=== PATIENT | male | born 1980 ===

== ENCOUNTER 2017-03-04 13:37 | Emergency (ER) | payer OTHER ==
--- NOTE | 2017-03-04 15:14 | RAD ---
INDICATION: RIGHT lower extremity redness medial thigh. COMPARISON: February 19, 2017. TECHNIQUE: Limited venous ultrasound RIGHT lower extremity for reassessment of greater saphenous vein thrombus. REPORT: There is occlusive thrombosis of the RIGHT great saphenous vein at the calf as on the prior exam with propagation cephalad to the mid thigh corresponding with the region of skin redness. The great saphenous vein at the saphenous femoral junction demonstrates normal compressibility without evidence for thrombosis. Compressibility of the RIGHT common femoral, profunda femoral, proximal, mid, and distal segments of the femoral, and popliteal vein demonstrated. Compressibility of the RIGHT paired posterior tibial and peroneal veins demonstrated. Patency of the LEFT common femoral vein documented. IMPRESSION: 1. Proximal extension of the RIGHT great saphenous vein thrombus to the mid thigh corresponding with the region of skin redness. 2. The deep veins of the RIGHT lower extremity remain compressible without evidence for DVT.
[2017-03-04 16:45] LABS: Hematocrit 48 % (42-52); Hemoglobin 15.8 g/dl (14.0-18.0); Mean Corpuscular HGB Conc 33 g/dl (31-36); Mean Corpuscular Hemoglobin 30 pg (27-31); Mean Corpuscular Volume 91 fL (80-94); Mean Platelet Volume 10 um3 (7.4-10.4); Red Blood Count 5.22 10^6/ul (4.0-5.4); Red Cell Distribution Width 13 % (10.5-15); White Blood Count 8.1 10^3/ul (3.5-10.8)
[2017-03-04 17:03] LABS: Albumin 4.5 g/dL (3.2-5.2); BUN/Creatinine Ratio 11.8 (8-20); Calcium 9.5 mg/dL (8.6-10.3); EGFR African American 106.9 (>60); EGFR Non-African American 83.1 (>60); Globulin 3.2 g/dL (2-4); Potassium 3.7 mmol/L (3.5-5.0); Total Bilirubin 0.5 mg/dL (0.2-1.0); Total Protein 7.7 g/dL (6.4-8.9)
[2017-03-04] MEDS ORDERED: Iohexol 350* (CONTRAST) 500 ML MDV IV ONE (17:22)
--- NOTE | 2017-03-04 17:57 | RAD ---
INDICATION: Chest pain. RIGHT lower extremity superficial venous thrombosis. COMPARISON: No relevant prior exams available on the [facility] [place] [facility] PACS. TECHNIQUE: Multidetector CT images were obtained from the lung apices to the upper abdomen with 74 mL Omnipaque 350 IV contrast. Pulmonary angiogram protocol. Multiplanar reformation including with maximum intensity projection. REPORT: Clear lungs and pleural spaces. Negative for pneumothorax. Residual normal-appearing thymic tissue in the anterior mediastinum. Negative for thoracic lymphadenopathy. Upper normal heart size. Negative for pericardial effusion. Unremarkable thoracic aorta. No filling defects are identified from the main to the subsegmental pulmonary arteries to indicate presence of a pulmonary embolism. Unremarkable Limited images through the upper abdomen. Negative for thoracic fracture or suspicious focal osseous lesion. No CT abnormality of the thoracic spine. IMPRESSION: 1. No evidence for pulmonary embolism. 2. No acute thoracic pathologic process evident.
[2017-03-04] MEDS ORDERED: Rivaroxaban TAB(*) 15 MG PO ONE (18:24)
[2017-03-04 19:28] VITALS: BP 136/87
--- NOTE | 2017-03-07 18:25 | ED ---
Luci Carlson Claudia, scribed for Balta Martinez MD on 03/04/17 at 1638 . Lower Extremity - HPI Summary HPI Summary: 37 year old male presents to the ED with right leg pain. About 3 weeks ago the pt was Dx with an SVT in his right lower leg and has been monitored by an Orthopedist and Kristi and is taking 500mg of ibuprofen daily. However, he noted overnight the blood clot moved up to his thigh and is now causing swelling , redness and burning pain 6/10. Pt has been using a heating pas which assisted in some alleviation of the pain but no other alleviation or aggravating Sx. Pt denies any fever, chills or associated Sx. Pt thinks the original SVT is from him playing soccer and his socks. - History of Current Complaint Chief Complaint: EDExtremityLower Stated Complaint: RIGHT LEG BLOOD CLOTT Time Seen by Provider: 03/04/17 14:23 Hx Obtained From: Patient Pain Intensity: 6 Pain Scale Used: 0-10 Numeric Timing: Constant, Lasting Days Location: Is Discrete @ - right leg Associated Signs And Symptoms: Positive: Swelling, Redness. Negative: Fever Aggravating Factor(s): Nothing Alleviating Factor(s): Nothing Able to Bear Weight: Yes PMH/Surg Hx/FS Hx/Imm Hx Previously Healthy: Yes Endocrine/Hematology History: Denies: Hx Diabetes Cardiovascular History: Denies: Hx Hypertension, Hx Pacemaker/ICD Sensory History: Denies: Hx Hearing Aid Psychiatric History: Denies: Hx Panic Disorder Infectious Disease History: No Infectious Disease History: Denies: Traveled Outside the [place] in Last 30 Days - Family History Known Family History: Negative: Diabetes - Social History Occupation: Student Lives: With Family Alcohol Use: None Hx Substance Use: No Hx Tobacco Use: No Smoking Status (MU): Never Smoked Tobacco Review of Systems Constitutional: Negative Negative: Fever, Chills Eyes: Negative Negative: Erythema ENT: Negative Negative: Sore Throat Positive: Palpitations Positive: Shortness Of Breath Gastrointestinal: Negative Negative: Abdominal Pain, Vomiting, Nausea Genitourinary: Negative Negative: dysuria, hematuria Musculoskeletal: Other - right leg swelling, redness and pain Negative: Myalgia Skin: Negative Negative: Rash Neurological: Negative Psychological: Normal All Other Systems Reviewed And Are Negative: Yes Physical Exam - Summary Physical Exam Summary: Constitutional: Well-developed, Well-nourished, Alert. (-) Distressed Skin: Warm, Dry HENT: Normocephalic; Atraumatic Eyes: Conjunctiva normal Neck: Musculoskeletal ROM normal neck. (-) JVD, (-) Stridor, (-) Tracheal deviation Cardio: Rhythm regular, rate normal, Heart sounds normal; Intact distal pulses; The pedal pulses are 2+ and symmetric. Radial pulses are 2+ and symmetric. (-) Murmur Pulmonary/Chest wall: Effort normal. (-) Respiratory distress, (-) Wheezes, (-) Rales Abd: Soft, (-) Tenderness, (-) Distension, (-) Guarding, (-) Rebound Musculoskeletal: (-) Edema SOME TENDERNESS OVER THE MEDIAL ASPECT OF THE RIGHT CALF AND RIGHT THIGH WITH MILD REDNESS Lymph: (-) Cervical adenopathy Neuro: Alert, Oriented x3 Psych: Mood and affect Normal Triage Information Reviewed: Yes Vital Signs On Initial Exam: Initial Vitals Temp Pulse Resp BP Pulse Ox 98.4 F 73 20 153/97 99 03/04/17 13:40 03/04/17 13:40 03/04/17 13:40 03/04/17 13:40 03/04/17 13:40 Vital Signs Reviewed: Yes Diagnostics - Vital Signs Vital Signs Temp Pulse Resp BP Pulse Ox 03/04/17 13:44 97.4 F 70 20 153/97 100 03/04/17 13:40 98.4 F 73 20 153/97 99 - Laboratory Result Diagrams: 03/04/17 16:35 03/04/17 16:35 Lab Statement: Any lab studies that have been ordered have been reviewed, and results considered in the medical decision making process. - CT CTA CHEST/THORAX CT Interpretation: No Acute Changes - 1. No evidence for pulmonary embolism. 2. No acute thoracic pathologic process evident. CT Interpretation Completed By: Radiologist - Additional Comments Diagnostic Additional Comments: VENOUS DOPPLER STUDY: 1. Proximal extension of the RIGHT great saphenous vein thrombus to the mid thigh corresponding with the region of skin redness. 2. The deep veins of the RIGHT lower extremity remain compressible without evidence for DVT. Lower Extremity Course/Dx - Course Assessment/Plan: After venous doppler study and CTA Chest/Thorax and the extension of the Superficial Vein Thrombosis the pt will be d/c home with Xarelto and follow-up this week with Kristi. - Diagnoses Provider Diagnoses: Superficial vein thrombosis Discharge - Discharge Plan Condition: Stable Disposition: HOME Referrals: Ibrahima Vargas MD [Primary Care Provider] - [facility] [Outside] - 2 Days (PLEASE FOLLOW UP THIS WEEK.) The documentation as recorded by the Luci christina Claudia accurately reflects the service I personally performed and the decisions made by , Balta Martinez MD.
== END 2017-03-04 19:27 | disposition home or self-care (01) ==
LOC: ED 13:37
DX: I82.811 Embolism and thrombosis of superficial veins of right lower extremity (principal); R00.2 Palpitations; R06.02 Shortness of breath
CPT/HCPCS: 36415; 71275; 80053; 83605; 85025; 85610; 85730; 99282; Q9967

== ENCOUNTER 2017-07-06 12:10 | Emergency (ER) | payer OTHER ==
[2017-07-06 13:53] LABS: Hematocrit 41 % (42-52); Hemoglobin 14.1 g/dl (14.0-18.0); Mean Corpuscular HGB Conc 34 g/dl (31-36); Mean Corpuscular Hemoglobin 32 pg (27-31); Mean Corpuscular Volume 92 fL (80-94); Mean Platelet Volume 10 um3 (7.4-10.4); Red Blood Count 4.47 10^6/ul (4.0-5.4); Red Cell Distribution Width 13 % (10.5-15); White Blood Count 4.9 10^3/ul (3.5-10.8)
[2017-07-06 14:13] LABS: Albumin 4.3 g/dL (3.2-5.2); BUN/Creatinine Ratio 13.2 (8-20); C Reactive Protein 10.06 mg/L (< 5.00); Calcium 9.5 mg/dL (8.6-10.3); EGFR African American 102.2 (>60); EGFR Non-African American 79.5 (>60); Globulin 2.9 g/dL (2-4); Total Bilirubin 0.4 mg/dL (0.2-1.0); Total Protein 7.2 g/dL (6.4-8.9)
--- NOTE | 2017-07-06 14:36 | RAD ---
Indication: Left flank pain. Real-time sonography of the kidneys was performed. The left kidney measures 12.4 x 6.6 x 5.5 cm. No hydronephrosis is noted. Echogenic foci in the midportion of the left kidney measures 5 mm. There may be an additional calculi noted. IMPRESSION: There are 2 5 mm calculi in the midportion of left kidney without definite hydronephrosis.
[2017-07-06 14:57] LABS: Urine Bilirubin Negative (Negative); Urine Glucose Negative (Negative); Urine Nitrite Negative (Negative)
--- NOTE | 2017-07-06 17:00 | RAD ---
Indication: Left flank pain. CT of the abdomen and pelvis was performed without oral or IV contrast administration. Coronal and sagittal reconstructed images were obtained. The lung bases demonstrate no pleural fluid, nodules or masses. Heart is of normal size without evidence of pericardial effusion. Liver is normal in size. There are no focal lesions or intrahepatic ductal dilatation noted. The gallbladder demonstrates no calcified gallstones. No pericholecystic fluid or wall thickening is identified. The spleen is normal in size. No adrenal lesions are noted. The kidneys demonstrate multiple calcifications in both kidneys. No definite hydroureter is noted. The urinary bladder demonstrates a calculi in the left ureterovesicular junction. This measures approximately 3 mm and may represent a recently passed calculi. No hernias are noted. No dilated loops of bowel are noted. The colon is filled with stool. IMPRESSION: Bilateral renal calculi with no sirena hydronephrosis however there is a tiny calculi at the left ureterovesicular junction measuring approximately 3 mm and may represent a recently passed calculi.
--- NOTE | 2017-07-06 17:34 | ED ---
Daphney Carlson Alfonso, scribed for Ricki Mauro MD on 07/06/17 at 1304 . Abdominal Pain/Male - HPI Summary HPI Summary: This patient is a 37 year old M presenting from [facility] to [facility] with a chief complaint of left flank pain since 0200 this morning. The patient rates the pain 4/10 in severity. Symptoms aggravated by nothing. Symptoms alleviated by nothing. Patient reports fever, chills, diaphoresis, nausea, dysuria, and dizziness. - History of Current Complaint Chief Complaint: EDFlankPain Stated Complaint: ABD PAIN Time Seen by Provider: 07/06/17 12:59 Hx Obtained From: Patient Onset/Duration: Sudden Onset, Lasting Hours - 0200 morning, Still Present Severity Initially: Moderate Severity Currently: Moderate Pain Intensity: 4 Pain Scale Used: 0-10 Numeric Aggravating Factor(s): Nothing Alleviating Factor(s): Nothing Associated Signs And Symptoms: Positive: Other - Patient reports fever, chills, diaphoresis, nausea, dysuria, and dizziness. - Allergies/Home Medications Allergies/Adverse Reactions: Allergies Allergy/AdvReac Type Severity Reaction Status Date / Time Naproxen Allergy Hives Verified 07/06/17 13:02 Home Medications: Home Medications Aspirin EC Low Dose* [Ecotrin EC Low Dose 81 MG*] 1 tab PO DAILY 07/06/17 [ History Confirmed 07/06/17] PMH/Surg Hx/FS Hx/Imm Hx Endocrine/Hematology History: Denies: Hx Diabetes Cardiovascular History: Denies: Hx Hypertension, Hx Pacemaker/ICD Sensory History: Denies: Hx Hearing Aid Psychiatric History: Denies: Hx Panic Disorder Infectious Disease History: No Infectious Disease History: Denies: Traveled Outside the [place] in Last 30 Days - Family History Known Family History: Positive: Other - Renal calculi Negative: Diabetes - Social History Alcohol Use: None Hx Substance Use: No Substance Use Type: Reports: None Hx Tobacco Use: No Smoking Status (MU): Never Smoked Tobacco Review of Systems Positive: Fever, Chills, Skin Diaphoresis Positive: Abdominal Pain - Left flank, Nausea Positive: dysuria Neurological: Other - Dizziness All Other Systems Reviewed And Are Negative: Yes Physical Exam Triage Information Reviewed: Yes Vital Signs On Initial Exam: Initial Vitals Temp Pulse Resp BP Pulse Ox 97.1 F 61 14 130/78 99 07/06/17 12:14 07/06/17 12:14 07/06/17 12:14 07/06/17 12:14 07/06/17 12:14 Vital Signs Reviewed: Yes Appearance: Positive: Well-Appearing, No Pain Distress Skin: Positive: Warm, Skin Color Reflects Adequate Perfusion, Dry Head/Face: Positive: Normal Head/Face Inspection Eyes: Positive: Normal ENT: Positive: Normal ENT inspection Neck: Positive: Supple, Nontender Respiratory/Lung Sounds: Positive: Clear to Auscultation, Breath Sounds Present Cardiovascular: Positive: RRR Abdomen Description: Positive: Soft, Other: - No CVA tenderness. LLQ tenderness mild. Bowel Sounds: Positive: Present Musculoskeletal: Positive: Normal Neurological: Positive: Normal, Sensory/Motor Intact, Alert, Oriented to Person Place, Time, CN Intact II-III Psychiatric: Positive: Affect/Mood Appropriate Diagnostics - Vital Signs Vital Signs Temp Pulse Resp BP Pulse Ox 07/06/17 12:57 98.3 F 63 16 122/74 97 07/06/17 12:14 97.1 F 61 14 130/78 99 - Laboratory Lab Results: Lab Results 07/06/17 07/06/17 07/06/17 Range/Units 13:45 13:45 14:09 WBC 4.9 (3.5-10.8) 10^3/ul RBC 4.47 (4.0-5.4) 10^6/ul Hgb 14.1 (14.0-18.0) g/dl Hct 41 L (42-52) % MCV 92 (80-94) fL MCH 32 H (27-31) pg MCHC 34 (31-36) g/dl RDW 13 (10.5-15) % Plt Count 194 (150-450) 10^3/ul MPV 10 (7.4-10.4) um3 Neut % (Auto) 61.5 (38-83) % Lymph % (Auto) 21.1 L (25-47) % [place] % (Auto) 11.2 H (1-9) % Eos % (Auto) 5.7 (0-6) % Baso % (Auto) 0.5 (0-2) % Absolute Neuts (auto) 3.0 (1.5-7.7) 10^3/ul Absolute Lymphs (auto) 1.0 (1.0-4.8) 10^3/ul Absolute Monos (auto) 0.5 (0-0.8) 10^3/ul Absolute Eos (auto) 0.3 (0-0.6) 10^3/ul Absolute Basos (auto) 0 (0-0.2) 10^3/ul Absolute Nucleated RBC 0 10^3/ul Nucleated RBC % 0 Sodium 138 (133-145) mmol/L Potassium 4.0 (3.5-5.0) mmol/L Chloride 104 (101-111) mmol/L Carbon Dioxide 28 (22-32) mmol/L Anion Gap 6 (2-11) mmol/L BUN 14 (6-24) mg/dL Creatinine 1.06 (0.67-1.17) mg/dL Est GFR ( Amer) 102.2 (>60) Est GFR (Non-Af Amer) 79.5 (>60) BUN/Creatinine Ratio 13.2 (8-20) Glucose 86 (70-100) mg/dL Lactic Acid 0.6 (0.5-2.0) mmol/L Calcium 9.5 (8.6-10.3) mg/dL Total Bilirubin 0.40 (0.2-1.0) mg/dL AST 26 (13-39) U/L ALT 34 (7-52) U/L Alkaline Phosphatase 52 (34-104) U/L C-Reactive Protein 10.06 H (< 5.00) mg/L Total Protein 7.2 (6.4-8.9) g/dL Albumin 4.3 (3.2-5.2) g/dL Globulin 2.9 (2-4) g/dL Albumin/Globulin Ratio 1.5 (1-3) Lipase 19 (11.0-82.0) U/L Urine Color Urine Appearance Urine pH (5-9) Ur Specific [place] (1.010-1.030) Urine Protein (Negative) Urine Ketones (Negative) Urine Blood (Negative) Urine Nitrate (Negative) Urine Bilirubin (Negative) Urine Urobilinogen (Negative) Ur Leukocyte Esterase (Negative) Urine Glucose (Negative) Urine Ascorbic Acid (Negative) 07/06/17 Range/Units 14:30 WBC (3.5-10.8) 10^3/ul RBC (4.0-5.4) 10^6/ul Hgb (14.0-18.0) g/dl Hct (42-52) % MCV (80-94) fL MCH (27-31) pg MCHC (31-36) g/dl RDW (10.5-15) % Plt Count (150-450) 10^3/ul MPV (7.4-10.4) um3 Neut % (Auto) (38-83) % Lymph % (Auto) (25-47) % [place] % (Auto) (1-9) % Eos % (Auto) (0-6) % Baso % (Auto) (0-2) % Absolute Neuts (auto) (1.5-7.7) 10^3/ul Absolute Lymphs (auto) (1.0-4.8) 10^3/ul Absolute Monos (auto) (0-0.8) 10^3/ul Absolute Eos (auto) (0-0.6) 10^3/ul Absolute Basos (auto) (0-0.2) 10^3/ul Absolute Nucleated RBC 10^3/ul Nucleated RBC % Sodium (133-145) mmol/L Potassium (3.5-5.0) mmol/L Chloride (101-111) mmol/L Carbon Dioxide (22-32) mmol/L Anion Gap (2-11) mmol/L BUN (6-24) mg/dL Creatinine (0.67-1.17) mg/dL Est GFR ( Amer) (>60) Est GFR (Non-Af Amer) (>60) BUN/Creatinine Ratio (8-20) Glucose (70-100) mg/dL Lactic Acid (0.5-2.0) mmol/L Calcium (8.6-10.3) mg/dL Total Bilirubin (0.2-1.0) mg/dL AST (13-39) U/L ALT (7-52) U/L Alkaline Phosphatase (34-104) U/L C-Reactive Protein (< 5.00) mg/L Total Protein (6.4-8.9) g/dL Albumin (3.2-5.2) g/dL Globulin (2-4) g/dL Albumin/Globulin Ratio (1-3) Lipase (11.0-82.0) U/L Urine Color Yellow Urine Appearance Clear Urine pH 7.0 (5-9) Ur Specific [place] 1.014 (1.010-1.030) Urine Protein Negative (Negative) Urine Ketones Negative (Negative) Urine Blood Negative (Negative) Urine Nitrate Negative (Negative) Urine Bilirubin Negative (Negative) Urine Urobilinogen Negative (Negative) Ur Leukocyte Esterase Negative (Negative) Urine Glucose Negative (Negative) Urine Ascorbic Acid * H (Negative) Result Diagrams: 07/06/17 13:45 07/06/17 13:45 Lab Statement: Any lab studies that have been ordered have been reviewed, and results considered in the medical decision making process. - CT A/P CT Interpretation Completed By: Radiologist - Bilateral renal calculi with no sirena hydronephrosis however there is a tiny calculi at the left ureterovesicular junction measuring approximately 3 mm and may represent a recently passed calculi. ED physician has reviewed this radiology report and agrees. - Additional Comments Diagnostic Additional Comments: Renal US reveals, per radiologist, There are 2 5 mm calculi in the midportion of left kidney without definite hydronephrosis. ED physician has reviewed this radiology report and agrees. Abdominal Pain Fem Course/Dx - Course Course Of Treatment: Mr. Ma presented with left flank pain for 12 hours or so whic was very bad during the night but is minor now. His urine was clean and he had no hydro on U/S. He wanted a CT to know for sure if he had a stone and that did reveal a 3 mm left UVJ stone. He was D/C'd with the typical treatment. - Diagnoses Provider Diagnoses: Kidney stone on left side Discharge - Discharge Plan Condition: Stable Disposition: HOME Prescriptions: HYDROcodone/ACETAMIN 5-325 MG* [[place] 5-325 TAB*] 1 tab PO Q6H PRN #20 tab MDD 4 PRN Reason: Pain Tamsulosin CAP* [Flomax CAP*] 0.4 mg PO DAILY #7 cap Patient Education Materials: Kidney Stones (ED) Referrals: Ibrahima Vargas MD [Primary Care Provider] - 2 Weeks Archie Pal MD [Medical Doctor] - 2 Weeks Additional Instructions: FOLLOW UP WITH UROLOGY WITHIN TWO WEEKS. The documentation as recorded by the Daphney christina Alfonso accurately reflects the service I personally performed and the decisions made by me, Ricki Mauro MD.
[2017-07-06 17:36] VITALS: BP 132/87
== END 2017-07-06 17:34 | disposition home or self-care (01) ==
LOC: ED 12:10
DX: N20.0 Calculus of kidney (principal); Z79.82 Long term (current) use of aspirin
CPT/HCPCS: 36415; 74176; 76775; 80053; 81003; 83605; 83690; 85025; 86140; 99283